=== PATIENT | male | born 1975 | race Two or more races ===

== ENCOUNTER 2020-05-08 19:52 | Emergency (ER) | payer SELFPAY ==
[~2020-05-08] VITALS: Ht 170.2 cm; Wt 91.0 kg
[2020-05-08] MEDS ORDERED: KETOROLAC 30MG/ML VIAL IM STA (23:01)
[2020-05-08] MEDS ORDERED: ONDANSETRON 4MG ODT PO STA (23:01)
[2020-05-08] MEDS ORDERED: MAGNESIUM/ALUMINUM HYDROXIDE/SIMETHICONE 30ML UDC PO STA (23:01)
[2020-05-09 01:54] VITALS: BP 120/80
== END 2020-05-09 01:55 | disposition home or self-care (01) ==
LOC: ER 19:52
DX: R06.02 Shortness of breath (principal); R05 Cough
CPT/HCPCS: 71045; 93005; 96372; 99283; J1885; Q0162